=== PATIENT | female | born 1935 | race Two or more races ===

== ENCOUNTER 2017-11-24 15:59 | Inpatient (IN) | payer MEDICARE, MEDICAID ==
--- NOTE | 2017-11-24 16:40 | ED Physician Chart ---
ED Chief Complaint/HPI - Patient Information Date Seen:: 11/24/17 Time Seen:: 16:37 Chief Complaint:: Hypoglycemia History of Present Illness:: 81 yo female was brought by BLS from SNF to ER for evaluation of altered mental status due to hypoglycemia Glucose 35. Patient was given D10 prior to ER arrival. Patient had cough productive of yellow sputum for 1 day. She was found to have UTI at [facility] ER a day ago. Patient has a mechanical heart valve on coumadin 3mg qd. Her INR was 2.93 two days ago. Today, her INR at ER was 4.43 and Hb was 7.8. Allergies:: Allergies Allergy/AdvReac Type Severity Reaction Status Date / Time No Known Allergies Allergy Verified 11/24/17 16:24 Vitals:: Vital Signs - 8 hr 11/24/17 16:17 Temp 96.5 F HR 61 RR 16 BP 120/45 O2 Sat % 96 ED Review of Systems - Review of Systems General/Constitutional: No fever Skin: No rash Head: Light headed Eyes: No pain ENT: No nasal drainage Neck: No neck pain Cardio Vascular: Palpitations, No edema Pulmonary: SOB, Cough, Sputum GI: No nausea, No vomiting Musculoskeletal: No bone or joint pain Neurological: Weakness ED Past Medical History - Past Medical History Past Medical History: HTN, DM, CHF, PUD/GERD, Dementia, Other (GI bleeding, atrial fibrillation, hemorrhoids) Social History: Non Smoker, No Alcohol, No Drug Use Surgical History: CABG, Pacemaker Family Medical History - Family Member Mother History Unknown: Yes ED Physical Exam - Physical Examination General/Constitutional: Awake Head: Atraumatic Eyes: PERRL Skin: No ecchymosis ENMT: Nasal exam nl Neck: Nontender Other Respiratory comments:: Rhonchi Cardio Vascular: No murmur, gallop, rubs, NL S1 S2 Other Cardio Vascular comments:: IRR GI: No tenderness/rebounding/guarding Extremities: No edema Other Neuro/Psych comments:: Oriented to self only ED Labs/Radiology/EKG Results - Radiology Results Results: CXR: cardiomegaly, no focal consolidation - EKG Interpretations EKG Time:: 16:47 Rate & Rhythm: 76 bpm, atrial fibrillation Intervals: Prolonged QT intervals Comments:: Non-specific T wave changes ED Assessment - Assessment General Assessment: Microcytic anemia 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 Is Septic Shock (SBP<90, OR Lactate>4 mmol\L) present?: No - <6hrs of presentation: Vital Signs: Vital Signs - 8 hr 11/24/17 16:17 Temp 96.5 F HR 61 RR 16 BP 120/45 O2 Sat % 96 ED Reassessment (Disposition) - Reassessment Reassessment Condition:: Improved - Patient Disposition Discharge/Transfer:: Acute Care w/in this hosp Admitting Medical Physician:: Eric Vasquez ED Discharge Plan - Patient Disposition Admit/Discharge/Transfer: Acute Care w/in this hosp Condition at Disposition: Stable
[2017-11-24 17:16] LABS: % BASOPHILS 0.5 % (0.0-2.0); % EOSINOPHILS 0.3 % (0.0-5.0); % LYMPHOCYTES 9.9 % (20.0-50.0); % MONOCYTES 6.8 % (2.0-10.0); % NEUTROPHILS 82.5 % (40.0-80.0); HEMATOCRIT 24.8 % (41.0-60); LYMPHOCYTE ABSOLUTE 0.6 Th/cmm (1.5-3.0); MEAN CELL VOLUME 78.9 fl (81-100); MEAN CORPUSCULAR HEMOGLOBIN 24.8 pg (27.0-31.0); MEAN CORPUSCULAR HGB CONC 31.5 pg (28.0-36.0); MONOCYTE ABSOLUTE 0.4 Th/cmm (0.3-1.0); NEUTROPHILE ABSOLUTE 4.9 Th/cmm (1.8-8.0); PLATELET COUNT 356 Th/cmm (150-400); RED BLOOD COUNT 3.14 Mil/cmm (3.80-5.20); RED CELL DISTRIBUTION WIDTH 17.1 % (11.5-20.0); WHITE BLOOD COUNT 5.9 Th/cmm (4.8-10.8)
[2017-11-24 17:20] LABS: HEMOGLOBIN 7.8 gm/dL (12-16)
[2017-11-24 17:28] LABS: PROTHROMBIN TIME (TEST) 49.8 SECONDS (9.5-11.5)
[2017-11-24 17:30] LABS: ALB/GLOB RATIO 0.8 (1.0-1.8); ALBUMIN 2.7 gm/dL (3.7-5.3); ALKALINE PHOSPHATASE 177 U/L (34-104); ANION GAP 11.5 (7.0-16.0); BILIRUBIN,TOTAL 0.3 mg/dL (0.3-1.0); BUN - UREA NITROGEN 24 mg/dL (7-25); CALCIUM SERUM 8.3 mg/dL (8.6-10.3); CARBON DIOXIDE 21.2 mEq/L (21.0-31.0); CHLORIDE 104 mEq/L (98-107); CREATININE - SERUM 1.3 mg/dL (0.6-1.2); GLUCOSE 100 mg/dL (70-105); POTASSIUM SERUM 3.7 mEq/L (3.5-5.1); SGOT 19 U/L (13-39); SGPT/ALT 18 U/L (7-52); SODIUM SERUM 133 mEq/L (136-145); TOTAL PROTEIN,SERUM 6.2 gm/dL (6.0-8.3)
[2017-11-24 17:45] LABS: INR 4.43 (0.5-1.4)
[2017-11-24] MEDS ORDERED: Sodium Chloride 0.9% 1,000 ML IV ONE (17:54)
[2017-11-24] MEDS ORDERED: Albuterol/Ipratropium Neb 3 ML AERS HHN ONE ×2 (18:28→18:51)
[2017-11-24 18:50] LABS: URINE MICROSCOPIC INDICATED? YES; URINE SOURCE RANDOM
[2017-11-24 18:52] LABS: URINE BILIRUBIN NEGATIVE (NEGATIVE); URINE BLOOD LARGE (NEGATIVE); URINE GLUCOSE (UA) NEGATIVE (NEGATIVE); URINE KETONE NEGATIVE (NEGATIVE); URINE LEUKOCYTE ESTERASE LARGE (NEGATIVE); URINE NITRATE NEGATIVE (NEGATIVE); URINE PH 5.5 (4.6 - 8.0); URINE PROTEIN 30 mg/dL (NEGATIVE); URINE UROBILINOGEN 0.2 E.U./dL (0.2 - 1.0)
[2017-11-24 18:56] LABS: URINE CLARITY TURBID (CLEAR); URINE COLOR YELLOW
[2017-11-24 19:00] LABS: URINE BACTERIA FEW /hpf (NONE SEEN); URINE EPITHELIAL CELLS OCCASIONAL /lpf (FEW); URINE WBC >100 /hpf (0-5)
[2017-11-24] MEDS: INSULIN ASPART SLIDING SCALE 100 UNITS/ML UNIT SUBQ SCH (21:50)
[2017-11-24] MEDS: cefTRIAXone 1 GM in Sodium Chloride 0.9% 50 ML IV SCH (22:38)
[2017-11-25 00:41] VITALS: BP 117/80
[2017-11-25 05:57] LABS: % BASOPHILS 0.6 % (0.0-2.0); % EOSINOPHILS 2.2 % (0.0-5.0); % MONOCYTES 6.9 % (2.0-10.0); % NEUTROPHILS 68.3 % (40.0-80.0); EOSINOPHILE ABSOLUTE 0.2 Th/cmm (0.1-0.4); HEMATOCRIT 23.9 % (41.0-60); LYMPHOCYTE ABSOLUTE 1.5 Th/cmm (1.5-3.0); MEAN CELL VOLUME 78.6 fl (81-100); MEAN CORPUSCULAR HEMOGLOBIN 25.2 pg (27.0-31.0); MEAN PLATELET VOLUME 6.8 fl; MONOCYTE ABSOLUTE 0.5 Th/cmm (0.3-1.0); NEUTROPHILE ABSOLUTE 4.7 Th/cmm (1.8-8.0); PLATELET COUNT 355 Th/cmm (150-400); RED BLOOD COUNT 3.05 Mil/cmm (3.80-5.20); RED CELL DISTRIBUTION WIDTH 16.9 % (11.5-20.0); WHITE BLOOD COUNT 6.9 Th/cmm (4.8-10.8)
[2017-11-25 06:21] LABS: ANION GAP 10.2 (7.0-16.0); BUN - UREA NITROGEN 22 mg/dL (7-25); CALCIUM SERUM 8.1 mg/dL (8.6-10.3); CARBON DIOXIDE 20.9 mEq/L (21.0-31.0); CHLORIDE 108 mEq/L (98-107); CREATININE - SERUM 1.1 mg/dL (0.6-1.2); GLUCOSE 116 mg/dL (70-105); POTASSIUM SERUM 4.1 mEq/L (3.5-5.1); SODIUM SERUM 135 mEq/L (136-145)
[2017-11-25 06:26] LABS: HEMOGLOBIN 7.7 gm/dL (12-16)
[2017-11-25] MEDS: INSULIN ASPART SLIDING SCALE 100 UNITS/ML UNIT SUBQ SCH ×4 (06:59→21:59)
[2017-11-25] MEDS ORDERED: Polyvinyl Alcohol Ophth Soln 15 mL Bottle EACH EYE PRN (08:14)
[2017-11-25] MEDS ORDERED: Magnesium Hydroxide (MOM) 30 mL UDC PO PRN (08:14)
[2017-11-25] MEDS ORDERED: LOPERAMIDE HCL 2 MG PO PRN (08:14)
[2017-11-25] MEDS ORDERED: Non-Formulary Item 1 EA (Cranberry Fruit [Cranberry] 450 MG) PO SCH (09:00)
[2017-11-25] MEDS ORDERED: ASCORBIC ACID 500 MG PO SCH (09:00)
[2017-11-25] MEDS ORDERED: INSULIN ASPART, RECOMBINANT 100 UNITS/ML SUBQ SCH ×2 (09:00)
--- NOTE | 2017-11-25 09:10 | Diagnostic Imaging Report ---
Portable chest x-ray HISTORY: Shortness of breath The heart is enlarged. Surgical changes including mitral valve replacement noted. Atherosclerotic calcification seen within the aorta. Cardiac electrode lead wires project over the right atrium and right ventricle. No focal pulmonary processes. IMPRESSION: 1. Cardiomegaly with atherosclerotic vascular changes 2. Surgical changes 3. No focal pulmonary processes
[2017-11-25 09:27] LABS: INR 3.29 (0.5-1.4); PROTHROMBIN TIME (TEST) 36.4 SECONDS (9.5-11.5)
[2017-11-25] MEDS: Ferrous Sulfate 325 MG TAB PO SCH (10:22)
[2017-11-25] MEDS: Multivitamin w/ Minerals Tab PO SCH (10:23)
[2017-11-25] MEDS: Pantoprazole 40 mg EC Tab PO SCH ×2 (10:23→18:30)
[2017-11-25] MEDS: Diltiazem 30 mg Tab PO SCH ×3 (10:24→21:54)
[2017-11-25] MEDS: Guaifenesin DM 10 ML UDC PO PRN (15:13)
[2017-11-25] MEDS: Albuterol/Ipratropium Neb 3 ML AERS HHN SCH ×3 (15:14→23:32)
--- NOTE | 2017-11-25 16:48 | History & Physical ---
ADMIT DATE: REASON FOR ADMISSION: Altered mental status, hypoglycemia with a glucose of 35, status post D10 injection, failed treatment for urinary tract infection with outpatient p.o. antibiotic, Coumadin toxicity, hyponatremia, generalized weakness in this patient with a mechanical heart valve, chronic atrial fibrillation, hyperuricemia, hypertension, anemia with hemoglobin of 7.8, insulin-dependent diabetes mellitus, gastroesophageal reflux disease. PAST MEDICAL HISTORY: As mentioned above. ALLERGIES: None. CURRENT MEDICATION: Includes Keflex 500 mg 4 times a day started in the [facility] Emergency Room 2 days prior to this admission and Bactrim-DS 1 tablet p.o. b.i.d., Diflucan 100 mg q.8 hours gel topically, insulin glargine 50 units subcutaneous at bedtime, Remeron 7.5 mg at bedtime, allopurinol 100 mg once a day, vitamin C 500 mg twice a day, ferrous sulfate 325 mg twice a day, digoxin 125 mcg once a day, Cardizem 30 mg 3 times a day, Colace 100 mg once a day, folic acid 1 mg once a day, Lasix 20 mg once a day, insulin aspart 12 units in the morning and 16 units at night. Loperamide 2 mg q.6 hours p.r.n. for diarrhea, magnesium hydroxide (milk of magnesia ) 30 ml p.o. at bedtime p.r.n., multivitamin once a day, artificial tears 1 drop q.6 hours p.r.n. both eyes, Aldactone 25 mg once a day, Coumadin 3 mg once a day. SOCIAL HISTORY: Noncontributory. REVIEW OF SYSTEMS: See the history of presenting illness. The patient's main complaint is "I don't feel good, doctor I am unable to fall asleep." The patient is complaining of pain in the suprapubic area. No fever, no chills, no leg swelling or joint swelling. No rashes. PHYSICAL EXAMINATION: VITAL SIGNS: On examination, height 1.52 meters, weight 56.6 kg, temperature 96.5, afebrile since admission, temperature maximum 97, pulse 78, blood pressure 124/60, heart rate 78 and respiratory rate 18, blood pressure 124/60, oxygen saturation 100% on room air. HEENT: Unremarkable. NECK: Supple. No JVD, bruit, or lymphadenopathy. CHEST: Clear. CARDIOVASCULAR: S1, S2 normal limit. 2/6 systolic ejection murmur from the mechanical valve. ABDOMEN: Soft, no distention noted in the suprapubic area. Bowel sound is active. No CVA tenderness. EXTREMITIES: Dry skin. Dorsalis pedis palpable. No leg edema noted. Onychomycosis of the big toenails present. CENTRAL NERVOUS SYSTEM: The patient is awake, cooperative, able to follow all commands. LABORATORY TESTS: Significant for WBC 5.9, repeat one is 6.9; hemoglobin 7.8, repeat is 7.7; MCV 78; platelet count of 355,000; neutrophil 68. Protime 49. INR 4.4. Sodium 135, potassium 4.1, chloride 108, bicarbonate 21, BUN 22, creatinine 1.1 and glucose of 116, calcium 8.1. Liver panel otherwise unremarkable except albumin 2.7, BNP 255. Urinalysis pH 5.5, specific gravity 1.020, protein 1+, nitrite negative, leukocyte esterase large, wbcs more than 100. Stool occult blood negative. ASSESSMENT AND PLAN: 1. Altered mental status secondary to hypoglycemia. We will hold the patient's long-acting insulin and only do Accu-Chek and sliding scale and go from there. 2. Urinary tract infection, complicated. The patient is waiting for outpatient cystoscopy on 11/28/2017. The patient failed outpatient Keflex and Bactrim given from the [facility] Emergency Room 2 days prior, so we will start the patient on IV Rocephin and wait for urine culture. Also, give IV fluid cautiously as patient had congestive heart failure. 3. Coumadin toxicity. We will check a protime again this morning and hold Coumadin if INR is more than 3, most likely increasing the Coumadin level from the recent antibiotic use. 4. Hyponatremia, status post 1 liter of IV fluid in the Emergency Room and sodium is 135, so we will discontinue IV fluid as patient with congestive heart failure. 5. Congestive heart failure. Continue Aldactone and Lasix. Monitor electrolytes. 6. Gastroesophageal reflux disease. Continue Protonix. 7. Degenerative joint disease. We will hold Diflucan and Voltaren gel at present time and give Tylenol p.r.n. for pain. 8. Chronic insomnia, currently on Remeron 7.5 p.o. at bedtime. We will continue with that. 9. Hyperuricemia currently on allopurinol 100. We will continue with that. 10. Anemia. Hemoglobin remained stable and the stool occult negative. We will continue with iron replacement and a type and crossmatch at the present time and if hemoglobin goes below 7, we will transfuse. 11. Chronic constipation. We will continue with milk of magnesia on a p.r.n. basis. 12. Cardiac arrhythmia. We will obtain EKG and a digoxin level and continue with digoxin and Cardizem to control the heart rate. 13. Advanced directive of no CPR status. JOB# [id number] ISIDRO
[2017-11-25] MEDS: cefTRIAXone 1 GM in Sodium Chloride 0.9% 50 ML IV SCH (21:55)
[2017-11-26] MEDS: Albuterol/Ipratropium Neb 3 ML AERS HHN SCH ×6 (03:32→22:46)
[2017-11-26] MEDS: INSULIN ASPART SLIDING SCALE 100 UNITS/ML UNIT SUBQ SCH ×4 (06:51→20:38)
[2017-11-26 07:13] LABS: % BASOPHILS 1.3 % (0.0-2.0); % EOSINOPHILS 0.8 % (0.0-5.0); % LYMPHOCYTES 25.1 % (20.0-50.0); % MONOCYTES 6.1 % (2.0-10.0); % NEUTROPHILS 66.7 % (40.0-80.0); BASOPHILE ABSOLUTE 0.1 Th/cumm (0-0.2); HEMATOCRIT 24.9 % (41.0-60); HEMOGLOBIN 8.2 gm/dL (12-16); LYMPHOCYTE ABSOLUTE 1.4 Th/cmm (1.5-3.0); MEAN CELL VOLUME 77.3 fl (81-100); MEAN CORPUSCULAR HEMOGLOBIN 25.4 pg (27.0-31.0); MEAN CORPUSCULAR HGB CONC 32.8 pg (28.0-36.0); MEAN PLATELET VOLUME 7.5 fl; MONOCYTE ABSOLUTE 0.3 Th/cmm (0.3-1.0); NEUTROPHILE ABSOLUTE 3.8 Th/cmm (1.8-8.0); PLATELET COUNT 352 Th/cmm (150-400); RED BLOOD COUNT 3.21 Mil/cmm (3.80-5.20); RED CELL DISTRIBUTION WIDTH 17.2 % (11.5-20.0); WHITE BLOOD COUNT 5.6 Th/cmm (4.8-10.8)
[2017-11-26 07:31] LABS: ALB/GLOB RATIO 0.8 (1.0-1.8); ALBUMIN 2.7 gm/dL (3.7-5.3); ALKALINE PHOSPHATASE 160 U/L (34-104); ANION GAP 11.6 (7.0-16.0); BILIRUBIN,TOTAL 0.4 mg/dL (0.3-1.0); BUN - UREA NITROGEN 16 mg/dL (7-25); CALCIUM SERUM 8.5 mg/dL (8.6-10.3); CARBON DIOXIDE 21.5 mEq/L (21.0-31.0); CHLORIDE 107 mEq/L (98-107); CHOLESTEROL 98 mg/dL (<200); CREATININE - SERUM 1.1 mg/dL (0.6-1.2); GLUCOSE 128 mg/dL (70-105); HDL -HIGH DENSITY LIPOPROTEIN 18 mg/dL (23-92); POTASSIUM SERUM 4.1 mEq/L (3.5-5.1); SGOT 16 U/L (13-39); SGPT/ALT 15 U/L (7-52); SODIUM SERUM 136 mEq/L (136-145); TOTAL PROTEIN,SERUM 6.2 gm/dL (6.0-8.3); TRIGLYCERIDES 136 mg/dL (<150)
[2017-11-26 07:32] LABS: INR 2.6 (0.5-1.4); PROTHROMBIN TIME (TEST) 28.4 SECONDS (9.5-11.5)
--- NOTE | 2017-11-26 09:00 | Diagnostic Imaging Report ---
Portable chest x-ray HISTORY: Shortness of breath Compared with prior exam of November 24, 2017, cardiomegaly again noted. There does appear to be degree of pulmonary vascular redistribution consistent with an element of cardiac decompensation. No tj pulmonary edema. Findings consistent with a small right pleural effusion are noted. IMPRESSION: 1. Persistent cardiomegaly along with evidence of a small right pleural effusion and changes consistent with a mild degree of congestive heart failure without tj pulmonary edema.
[2017-11-26] MEDS: Diltiazem 30 mg Tab PO SCH ×3 (09:26→20:39)
[2017-11-26] MEDS: Ferrous Sulfate 325 MG TAB PO SCH (09:27)
[2017-11-26] MEDS: Pantoprazole 40 mg EC Tab PO SCH ×2 (09:27→17:57)
[2017-11-26] MEDS: Multivitamin w/ Minerals Tab PO SCH (09:27)
[2017-11-26] MEDS: cefTRIAXone 1 GM in Sodium Chloride 0.9% 50 ML IV SCH (20:38)
[2017-11-26] MEDS: Guaifenesin DM 10 ML UDC PO PRN (20:41)
[2017-11-27] MEDS: Albuterol/Ipratropium Neb 3 ML AERS HHN SCH ×2 (02:36→07:04)
[2017-11-27 06:14] LABS: ALB/GLOB RATIO 0.8 (1.0-1.8); ALBUMIN 2.6 gm/dL (3.7-5.3); ALKALINE PHOSPHATASE 142 U/L (34-104); ANION GAP 11.8 (7.0-16.0); BILIRUBIN,TOTAL 0.3 mg/dL (0.3-1.0); BUN - UREA NITROGEN 16 mg/dL (7-25); CALCIUM SERUM 8.3 mg/dL (8.6-10.3); CARBON DIOXIDE 21.9 mEq/L (21.0-31.0); CHLORIDE 107 mEq/L (98-107); CREATININE - SERUM 1.3 mg/dL (0.6-1.2); GLUCOSE 166 mg/dL (70-105); POTASSIUM SERUM 3.7 mEq/L (3.5-5.1); SGOT 16 U/L (13-39); SGPT/ALT 12 U/L (7-52); SODIUM SERUM 137 mEq/L (136-145)
[2017-11-27 06:50] LABS: % BASOPHILS 3.6 % (0.0-2.0); % EOSINOPHILS 1.8 % (0.0-5.0); % LYMPHOCYTES 29.5 % (20.0-50.0); % MONOCYTES 8.4 % (2.0-10.0); % NEUTROPHILS 56.7 % (40.0-80.0); BASOPHILE ABSOLUTE 0.2 Th/cumm (0-0.2); EOSINOPHILE ABSOLUTE 0.1 Th/cmm (0.1-0.4); HEMATOCRIT 23.7 % (41.0-60); LYMPHOCYTE ABSOLUTE 1.6 Th/cmm (1.5-3.0); MEAN CELL VOLUME 78.3 fl (81-100); MEAN CORPUSCULAR HEMOGLOBIN 25.3 pg (27.0-31.0); MEAN CORPUSCULAR HGB CONC 32.3 pg (28.0-36.0); MEAN PLATELET VOLUME 7.6 fl; MONOCYTE ABSOLUTE 0.5 Th/cmm (0.3-1.0); NEUTROPHILE ABSOLUTE 3.1 Th/cmm (1.8-8.0); PLATELET COUNT 327 Th/cmm (150-400); RED BLOOD COUNT 3.03 Mil/cmm (3.80-5.20); RED CELL DISTRIBUTION WIDTH 17.5 % (11.5-20.0)
[2017-11-27 06:54] LABS: WHITE BLOOD COUNT 5.5 Th/cmm (4.8-10.8)
[2017-11-27] MEDS: INSULIN ASPART SLIDING SCALE 100 UNITS/ML UNIT SUBQ SCH ×4 (08:55→22:25)
[2017-11-27] MEDS: Diltiazem 30 mg Tab PO SCH ×3 (09:30→21:10)
[2017-11-27] MEDS: Ferrous Sulfate 325 MG TAB PO SCH (09:30)
[2017-11-27] MEDS: Multivitamin w/ Minerals Tab PO SCH (09:30)
[2017-11-27] MEDS: Pantoprazole 40 mg EC Tab PO SCH ×2 (09:30→17:14)
[2017-11-27] MEDS ORDERED: Albuterol/Ipratropium Neb 3 ML AERS HHN PRN (10:19)
[2017-11-27] MEDS ORDERED: Magnesium Citrate 1.75 GM/300 mL Bottle PO ONE (11:07)
[2017-11-27 12:58] LABS: INR 2.47 (0.5-1.4); PROTHROMBIN TIME (TEST) 26.9 SECONDS (9.5-11.5)
[2017-11-27 16:27] LABS: ABSOLUTE RETICULOCYTE 48.2 Th/cmm; CORRECTED RETICULOCYTE COUNT 0.8 % (0.5-1.5); HEMATOCRIT 23.4 % (37.0-47.0); RBC RETICULOCYTE COUNT 3.01 Mil/cmm; RETICULOCYTES % COUNTED 1.6 % (0.5-1.5)
[2017-11-27 20:24] LABS: % BASOPHILS 0.6 % (0.0-2.0); % EOSINOPHILS 3.6 % (0.0-5.0); % LYMPHOCYTES 23.6 % (20.0-50.0); % MONOCYTES 7.9 % (2.0-10.0); % NEUTROPHILS 64.3 % (40.0-80.0); EOSINOPHILE ABSOLUTE 0.2 Th/cmm (0.1-0.4); HEMATOCRIT 27.5 % (41.0-60); HEMOGLOBIN 9.1 gm/dL (12-16); LYMPHOCYTE ABSOLUTE 1.6 Th/cmm (1.5-3.0); MEAN CELL VOLUME 78.2 fl (81-100); MEAN CORPUSCULAR HEMOGLOBIN 25.7 pg (27.0-31.0); MEAN CORPUSCULAR HGB CONC 32.9 pg (28.0-36.0); MEAN PLATELET VOLUME 6.3 fl; MONOCYTE ABSOLUTE 0.5 Th/cmm (0.3-1.0); NEUTROPHILE ABSOLUTE 4.3 Th/cmm (1.8-8.0); PLATELET COUNT 366 Th/cmm (150-400); RED BLOOD COUNT 3.52 Mil/cmm (3.80-5.20); RED CELL DISTRIBUTION WIDTH 16.2 % (11.5-20.0); WHITE BLOOD COUNT 6.6 Th/cmm (4.8-10.8)
[2017-11-27] MEDS: cefTRIAXone 1 GM in Sodium Chloride 0.9% 50 ML IV SCH (21:00)
[2017-11-27] MEDS: Guaifenesin DM 10 ML UDC PO PRN (21:32)
[2017-11-28 05:23] LABS: % BASOPHILS 0.9 % (0.0-2.0); % EOSINOPHILS 3.6 % (0.0-5.0); % LYMPHOCYTES 24.9 % (20.0-50.0); % MONOCYTES 7.2 % (2.0-10.0); % NEUTROPHILS 63.4 % (40.0-80.0); BASOPHILE ABSOLUTE 0.1 Th/cumm (0-0.2); EOSINOPHILE ABSOLUTE 0.3 Th/cmm (0.1-0.4); HEMATOCRIT 30.2 % (41.0-60); LYMPHOCYTE ABSOLUTE 1.8 Th/cmm (1.5-3.0); MEAN CELL VOLUME 80.3 fl (81-100); MEAN CORPUSCULAR HEMOGLOBIN 26.7 pg (27.0-31.0); MEAN CORPUSCULAR HGB CONC 33.3 pg (28.0-36.0); MEAN PLATELET VOLUME 6.8 fl; MONOCYTE ABSOLUTE 0.5 Th/cmm (0.3-1.0); NEUTROPHILE ABSOLUTE 4.7 Th/cmm (1.8-8.0); PLATELET COUNT 331 Th/cmm (150-400); RED BLOOD COUNT 3.76 Mil/cmm (3.80-5.20); RED CELL DISTRIBUTION WIDTH 17.1 % (11.5-20.0); WHITE BLOOD COUNT 7.4 Th/cmm (4.8-10.8)
[2017-11-28 05:37] LABS: INR 2.7 (0.5-1.4); PROTHROMBIN TIME (TEST) 29.6 SECONDS (9.5-11.5)
[2017-11-28 05:41] LABS: ALB/GLOB RATIO 0.8 (1.0-1.8); ALBUMIN 2.8 gm/dL (3.7-5.3); ALKALINE PHOSPHATASE 143 U/L (34-104); ANION GAP 10.8 (7.0-16.0); BILIRUBIN,TOTAL 1.3 mg/dL (0.3-1.0); BUN - UREA NITROGEN 14 mg/dL (7-25); CALCIUM SERUM 8.3 mg/dL (8.6-10.3); CARBON DIOXIDE 23.2 mEq/L (21.0-31.0); CHLORIDE 106 mEq/L (98-107); GLUCOSE 110 mg/dL (70-105); MAGNESIUM 1.7 mg/dL (1.9-2.7); SGOT 19 U/L (13-39); SGPT/ALT 15 U/L (7-52); SODIUM SERUM 136 mEq/L (136-145); TOTAL PROTEIN,SERUM 6.2 gm/dL (6.0-8.3)
--- NOTE | 2017-11-28 07:10 | Consultation ---
DATE OF CONSULTATION: 11/27/2017 REASON FOR CONSULTATION: Anemia. HISTORY OF PRESENT ILLNESS: This consult was obtained through the courtesy of Dr. Burns for this 81-year-old with dementia, congestive heart failure, electrolyte abnormality, Coumadin toxicity, admitted to the hospital, alter of consciousness and hypoglycemia, found to have elevation of PT, then she has anemia, which dropped even further, so GI consult was called in for further evaluation. The patient is confused, unable to provide any history. PAST MEDICAL HISTORY: Congestive heart failure, diabetes, gastroesophageal reflux disease, degenerative joint disease, dementia, electrolyte imbalance and on anticoagulation. PAST SURGICAL HISTORY: Not known. SOCIAL HISTORY: Nonsmoker, alcoholic, IV drug abuser, but old history is not known. FAMILY HISTORY: Noncontributory. ALLERGIES: No known drug allergies. MEDICATIONS: Keflex, Bactrim, Diflucan, insulin, Remeron, allopurinol, vitamin C, iron, digoxin, Cardizem, Lasix, folic acid, Colace, loperamide, milk of magnesia, multivitamin, Aldactone, Coumadin. REVIEW OF SYSTEMS: Unobtainable. PHYSICAL EXAMINATION: GENERAL: The patient is awake, oriented to self, in no acute distress. VITAL SIGNS: Blood pressure 120/46, heart rate 105, respiratory rate 18, temperature is 98.5. HEAD AND NECK: Pupils reactive to light and accommodation. Extraocular muscles could not be tested. Oral cavity, no lesion. NECK: Supple, no jugular venous distention, no carotid lymph node. CHEST: Good respiratory movements. LUNGS: Clear to auscultation. CARDIOVASCULAR: Regular rate and rhythm. No murmur or gallop. ABDOMEN: Soft, positive bowel sounds, not tender. EXTREMITIES: Lower extremities, no edema. CENTRAL NERVOUS SYSTEM: Grossly nonfocal. LABORATORY DATA: PT was 49.8 seconds, now is 28.4 seconds, INR 2.6, hemoglobin down to 7.7, MCV is low at 78.3. RDW was normal. Albumin is 2.6, creatinine 1.3. IMPRESSION: An 81-year-old with multiple medical problems, now with anemia, rule out peptic ulcer disease versus upper gastrointestinal malignancy versus colon cancer. RECOMMENDATIONS: 1. Monitor labs. 2. Check serum iron, TIBC, ferritin, B12, folic acid. 3. Check serum haptoglobin and check stool for occult blood. 4. Endoscopy and colonoscopy if not done before and whenever PT is okay, but I am not sure that the patient will be cooperative with the past, but we will check with the family first and then further recommendations to follow. Other medical problems such as congestive heart failure, diabetes, dementia, etc. as per Dr. Burns. Thank you Dr. Burns for allowing me to participate in the care of the patient. If you have any further questions, please let me know. JOB# [id number]
[2017-11-28] MEDS: INSULIN ASPART SLIDING SCALE 100 UNITS/ML UNIT SUBQ SCH ×4 (07:28→21:10)
[2017-11-28] MEDS: Ferrous Sulfate 325 MG TAB PO SCH (08:51)
[2017-11-28] MEDS: Pantoprazole 40 mg EC Tab PO SCH ×2 (08:51→17:16)
[2017-11-28] MEDS: Diltiazem 30 mg Tab PO SCH ×3 (08:53→20:12)
[2017-11-28] MEDS: Multivitamin w/ Minerals Tab PO SCH (08:54)
[2017-11-28 09:06] LABS: HEMOGLOBIN 7.7 gm/dL (12-16)
--- NOTE | 2017-11-28 09:28 | Internal Medicine Prog Note ---
Internal Medicine Objective - Results Result Diagrams: 11/28/17 05:10 11/28/17 05:10 Recent Labs: Laboratory Last Values WBC 7.4 Th/cmm (4.8-10.8) 11/28/17 05:10 RBC 3.76 Mil/cmm (3.80-5.20) L 11/28/17 05:10 Hgb 10.0 gm/dL (12-16) L 11/28/17 05:10 Hct 30.2 % (41.0-60) L 11/28/17 05:10 MCV 80.3 fl (81-100) L 11/28/17 05:10 MCH 26.7 pg (27.0-31.0) L 11/28/17 05:10 MCHC Differential 33.3 pg (28.0-36.0) 11/28/17 05:10 RDW 17.1 % (11.5-20.0) 11/28/17 05:10 Plt Count 331 Th/cmm (150-400) 11/28/17 05:10 MPV 6.8 fl 11/28/17 05:10 Neutrophils % 63.4 % (40.0-80.0) 11/28/17 05:10 Lymphocytes % 24.9 % (20.0-50.0) 11/28/17 05:10 Monocytes % 7.2 % (2.0-10.0) 11/28/17 05:10 Eosinophils % 3.6 % (0.0-5.0) 11/28/17 05:10 Basophils % 0.9 % (0.0-2.0) 11/28/17 05:10 Total Retics Counted 1.6 % (0.5-1.5) H 11/27/17 05:40 Absolute Retic 48.2 Th/cmm 11/27/17 05:40 Corrected Retic Count 0.8 % (0.5-1.5) 11/27/17 05:40 PT 29.6 SECONDS (9.5-11.5) H 11/28/17 05:10 INR 2.70 (0.5-1.4) H 11/28/17 05:10 PTT (Actin FS) 54.0 SECONDS (26.0-38.0) H 11/24/17 17:05 Sodium 136 mEq/L (136-145) 11/28/17 05:10 Potassium 4.0 mEq/L (3.5-5.1) 11/28/17 05:10 Chloride 106 mEq/L (98-107) 11/28/17 05:10 Carbon Dioxide 23.2 mEq/L (21.0-31.0) 11/28/17 05:10 Anion Gap 10.8 (7.0-16.0) 11/28/17 05:10 BUN 14 mg/dL (7-25) 11/28/17 05:10 Creatinine 1.0 mg/dL (0.6-1.2) 11/28/17 05:10 Est GFR ( Amer) TNP 11/28/17 05:10 Est GFR (Non-Af Amer) TNP 11/28/17 05:10 BUN/Creatinine Ratio 14.0 11/28/17 05:10 Glucose 110 mg/dL (70-105) H 11/28/17 05:10 POC Glucose 119 MG/DL (70 - 105) H 11/28/17 06:00 Uric Acid 5.3 mg/dL (2.3-6.6) 11/26/17 05:48 Calcium 8.3 mg/dL (8.6-10.3) L 11/28/17 05:10 Magnesium 1.7 mg/dL (1.9-2.7) L 11/28/17 05:10 Total Bilirubin 1.3 mg/dL (0.3-1.0) H 11/28/17 05:10 AST 19 U/L (13-39) 11/28/17 05:10 ALT 15 U/L (7-52) 11/28/17 05:10 Alkaline Phosphatase 143 U/L (34-104) H 11/28/17 05:10 Troponin I 0.01 ng/mL (0.01-0.05) 11/24/17 17:05 B-Natriuretic Peptide 248.0 pg/mL (5.0-100.0) H 11/26/17 05:48 Total Protein 6.2 gm/dL (6.0-8.3) 11/28/17 05:10 Albumin 2.8 gm/dL (3.7-5.3) L 11/28/17 05:10 Globulin 3.4 gm/dL 11/28/17 05:10 Albumin/Globulin Ratio 0.8 (1.0-1.8) L 11/28/17 05:10 Triglycerides 136 mg/dL (<150) 11/26/17 05:48 Cholesterol 98 mg/dL (<200) 11/26/17 05:48 LDL Cholesterol Direct 58 mg/dL (75-193) L 11/26/17 05:48 HDL Cholesterol 18 mg/dL (23-92) L 11/26/17 05:48 TSH 2.99 uIU/ml (0.34-5.60) 11/26/17 05:48 Urine Source RANDOM 11/24/17 18:19 Urine Color YELLOW 11/24/17 18:19 Urine Clarity TURBID (CLEAR) H 11/24/17 18:19 Urine pH 5.5 (4.6 - 8.0) 11/24/17 18:19 Ur Specific [place] 1.020 (1.005-1.030) 11/24/17 18:19 Urine Protein 30 mg/dL (NEGATIVE) H 11/24/17 18:19 Urine Glucose (UA) NEGATIVE mg/dL (NEGATIVE) 11/24/17 18:19 Urine Ketones NEGATIVE mg/dL (NEGATIVE) 11/24/17 18:19 Urine Blood LARGE (NEGATIVE) H 11/24/17 18:19 Urine Nitrate NEGATIVE (NEGATIVE) 11/24/17 18: Urine Bilirubin NEGATIVE (NEGATIVE) 11/24/17 18:19 Urine Urobilinogen 0.2 E.U./dL (0.2 - 1.0) 11/24/17 18:19 Ur Leukocyte Esterase LARGE (NEGATIVE) H 11/24/17 18:19 Urine RBC 5-10 /hpf (0-5) H 11/24/17 18:19 Urine WBC >100 /hpf (0-5) H 11/24/17 18:19 Ur Epithelial Cells OCCASIONAL /lpf (FEW) 11/24/17 18:19 Urine Bacteria FEW /hpf (NONE SEEN) 11/24/17 18:19 Stool Occult Blood NEGATIVE (NEGATIVE) 11/24/17 18:45 Digoxin 1.0 ng/ml (0.8-2.0) 11/25/17 08:47 Blood Type A POSITIVE 11/25/17 08:47 Antibody Screen NEGATIVE 11/25/17 08:47 Crossmatch See Detail 11/25/17 08:47 - Physical Exam Vitals and I&O: Vital Signs Temp 98.4 F 11/28/17 04:00 Pulse 97 11/28/17 08:53 Resp 18 11/28/17 04:00 BP 122/53 11/28/17 08:53 Pulse Ox 99 11/28/17 04:00 Intake & Output 11/27/17 11/28/17 11/28/17 18:59 06:59 18:59 Intake Total 800 100 Balance 800 100 Weight (lbs) 53.977 kg 54.068 kg Intake: Oral 800 100 Other: # Voids 3 4 # Bowel Movements 0 0 Weight Source Bedscale Bedscale Active Medications: Current Medications Acetaminophen (Tylenol) 650 mg PO Q4H PRN PRN Reason: Pain (Mild) Stop: 01/23/18 18:57 Last Admin: 11/24/17 22:38 Dose: 650 mg Acetaminophen (Tylenol) 650 mg PO Q6HR PRN PRN Reason: Pain (Mild) Stop: 01/24/18 08:13 Albuterol/Ipratropium (Duoneb Neb) 3 ml HHN Q2H PRN PRN Reason: Wheezing Stop: 01/26/18 10:18 Allopurinol (Zyloprim) 100 mg PO DAILY [facility] Stop: 01/24/18 08:59 Last Admin: 11/28/17 08:53 Dose: 100 mg Artificial Tears (Artificial Tears Ophth Soln) 1 drop EACH EYE Q6HR PRN PRN Reason: Dry Eye Stop: 01/24/18 08:13 Ascorbic Acid (Vitamin C) 500 mg PO DAILY [facility] Stop: 01/24/18 08:59 Last Admin: 11/28/17 08:52 Dose: 500 mg Digoxin (Lanoxin) 0.125 mg PO DAILY [facility] Stop: 01/24/18 08:59 Last Admin: 11/28/17 08:52 Dose: 0.125 mg Diltiazem HCl (Cardizem) 30 mg PO TID [facility] Stop: 01/24/18 08:59 Last Admin: 11/28/17 08:53 Dose: 30 mg Docusate Sodium (Colace) 100 mg PO DAILY [facility] Stop: 01/24/18 08:59 Last Admin: 11/28/17 08:52 Dose: 100 mg Ferrous Sulfate (Iron) 325 mg PO DAILY [facility] Stop: 01/24/18 08:59 Last Admin: 11/28/17 08:51 Dose: 325 mg Folic Acid (Folate) 1 mg PO DAILY [facility] Stop: 01/24/18 08:59 Last Admin: 11/28/17 08:51 Dose: 1 mg Furosemide (Lasix) 20 mg PO DAILY [facility] Stop: 01/24/18 08:59 Last Admin: 11/28/17 08:52 Dose: 20 mg Guaifenesin/Dextromethorphan (Robitussin Dm) 10 ml PO Q6HR PRN PRN Reason: Cough Stop: 01/24/18 14:26 Last Admin: 11/27/17 21:32 Dose: 10 ml Ceftriaxone Sodium 1 gm/ (Sodium Chloride) 50 mls @ 100 mls/hr IV Q24HR [facility] Stop: 01/23/18 20:59 Last Admin: 11/27/17 21:00 Dose: 100 mls/hr Insulin Aspart (Novolog Insulin Sliding Scale) 0 units SUBQ [facility]; Protocol Stop: 01/23/18 20:59 Last Admin: 11/28/17 07:28 Dose: Not Given Loperamide HCl (Imodium) 2 mg PO Q6HR PRN PRN Reason: Diarrhea Stop: 01/24/18 08:38 Magnesium Hydroxide (Milk Of Magnesia) 30 ml PO HS PRN PRN Reason: Constipation Stop: 01/24/18 08:13 Mirtazapine (Remeron) 7.5 mg PO HS [facility]; Protocol Stop: 01/24/18 20:59 Last Admin: 11/27/17 21:12 Dose: 7.5 mg Pantoprazole Sodium (Protonix) 40 mg PO BID [facility] Stop: 01/24/18 08:59 Last Admin: 11/28/17 08:51 Dose: 40 mg Spironolactone (Aldactone) 25 mg PO DAILY [facility] Stop: 01/24/18 08:59 Last Admin: 11/28/17 08:53 Dose: 25 mg Warfarin Sodium (Coumadin) 3 mg PO 1300 [facility]; Protocol Stop: 01/25/18 12:59 Last Admin: 11/27/17 15:00 Dose: 3 mg Warfarin Sodium (Coumadin Per Pharmacy) 1 ea [facility] PRN PRN; Protocol PRN Reason: RX MONITORING Stop: 01/26/18 10:01 Nutritional Asmnt/Malnutr-PDOC - Dietary Evaluation Malnutrition Findings (Please click <Entered> for more info): Nutritional Asmnt/Malnutrition Start: 11/25/17 09: 55 Text: Status: Complete Freq: Protocol: Document 11/25/17 09:55 [facility] (Rec: 11/25/17 10:03 [facility]UC [id number]) Nutritional Asmnt/Malnutrition Patient General Information Nutritional Screening Moderate Risk Consult Diagnosis Anemia, UTI Pertinent Medical Hx/Surgical Hx HTN, DM, CHF, PUD/GERD, Dementia, hx Gi bleed, A fib, hemorrhoids; s/p CABG, pacemaker Subjective Information Consult received for poor appetite. SNF patient with AMS d/t hypoglycemia. Patient is confused and unable to comprehend per EMR. Patient seen in room with daughter. Per daughter, patient requires feed assist but able to finish meals. Food preferences obtained and will honor to encourage adequate PO intake. Current Diet Order/ Nutrition Support CCHO Patient / S.O Can't verbalize diet edu Pertinent Medications vit C, colace, FeSO4, folic acid, lasix, novolog, MOM, imodium, protonix, remeron Pertinent Labs 11/25: Gluc 116, POC gluc 93- 149, Ca++ 8.1, Na 135 Nutritional Hx/Data Height 1.52 m Height (Calculated Centimeters) 152.4 Current Weight (lbs) 56.699 kg Weight (Calculated Kilograms) 56.7 Weight (Calculated Grams) 35941.0 [place] Body Weight 100 % [place] Body Weight 125 Body Mass Index (BMI) 24.4 Weight Status Approriate GI Symptoms GI Symptoms None Last BM no BM since admission Difficult in: None Food Allergies No Skin Integrity/Comment: ladarius roman 19 Current %PO Good (75-100%) Estimated Nutritional Goals BEE in Kcals: Using Current wt Calories/Kcals/Kg 25-27 Kcals Calculated 6330-8640 Protein: Using Current wt Protein g/k.8-1 Protein Calculated 45-56 Fluid: ml 8132-9952 (1ml/Kcal) Nutritional Problem 1. Problem Problem Self-feeding difficulty Etiology dementia Signs/Symptoms: need for feed assist Intervention/Recommendation Comments 1. Recommend continuing current diet order. 2. Recommend feed assist with all meals. Encourage adequate PO intake. Expected Outcomes/Goals Expected Outcomes/Goals Goal: PO intake to meet at least 75% of nutritional needs . Monitor PO intake, wt, labs and skin integrity F/U as moderate risk in 3-5 days, 11/28-11/30
[2017-11-28 14:15] LABS: FOLIC ACID >20.0 ng/mL (>3.0)
[2017-11-28] MEDS: cefTRIAXone 1 GM in Sodium Chloride 0.9% 50 ML IV SCH (20:12)
--- NOTE | 2017-11-29 04:35 | Progress Notes ---
DATE: PATIENT'S IDENTIFYING DATA: An 81-year-old female patient seen and examined. The patient had a blood transfusion done. GI input is currently pending. The patient's post transfusion hemoglobin is 10.0. The patient is currently on Coumadin, INR is 2.70 which is therapeutic range and blood sugars are under acceptable range as well. The patient's appetite is poor. The patient does not provide a meaningful history. PHYSICAL EXAMINATION: VITAL SIGNS: Temperature is 98, pulse is 97, respiratory rate is 18, and blood pressure is 122/53. HEENT: No facial asymmetry. Upper and lower dentures noted. NECK: Supple. No JVD. HEART: Irregular with grade 3/6 systolic murmur noted. CHEST AND LUNGS: Equal in expansion. No expiratory wheezing. ABDOMEN: Soft, no guarding or rigidity. Bowel sounds are present. No palpable mass. EXTREMITIES: No edema. CLINICAL IMPRESSION: 1. Altered mental status secondary to hypoglycemia, improved. 2. Complicated UTI. 3. CHF. 4. GERD. 5. Anemia status post blood transfusion. 6. Alzheimer dementia. 7. DJD. 8. Chronic constipation. 9. Cardiac arrhythmia. 10. Status post aortic valve replacement. PLAN: 1. Anticoagulation continue. 2. GI input. 3. Antibiotic. 4. PT, OT. 5. General nursing care. 6. Follow lab. 7. Follow consult recommendation. 8. Care plan reviewed and discussed with staff. JOB# [id number]
[2017-11-29 05:12] LABS: FERRITIN 159 ng/mL (15-150); HAPTOGLOBIN 130 mg/dL (34-200); IRON LC 15 ug/dL (27-139); TIBC (LC) 204 ug/dL (250-450); UIBC 189 ug/dL (118-369)
[2017-11-29] MEDS: INSULIN ASPART SLIDING SCALE 100 UNITS/ML UNIT SUBQ SCH ×2 (06:33→12:41)
[2017-11-29 07:13] LABS: INR 2.73 (0.5-1.4)
[2017-11-29] MEDS: Diltiazem 30 mg Tab PO SCH (09:06)
[2017-11-29] MEDS: Multivitamin w/ Minerals Tab PO SCH (09:06)
[2017-11-29] MEDS: Pantoprazole 40 mg EC Tab PO SCH (09:06)
[2017-11-29] MEDS: Ferrous Sulfate 325 MG TAB PO SCH (09:08)
--- NOTE | 2017-11-29 18:00 | Discharge Summary ---
DATE OF DISCHARGE: 11/29/2017 IDENTIFICATION: An 81-year-old female. PRINCIPAL DIAGNOSES: 1. Hypoglycemia, resolved. 2. Complicated urinary tract infection. 3. Acute on chronic normocytic normochromic anemia, status post blood transfusion. Family refused GI workup. 4. Coumadin therapy. 5. Alzheimer dementia. 6. Complicated urinary tract infection. 7. Congestive heart failure. 8. Gastroesophageal esophageal reflux disease. 9. Degenerative joint disease. 10. Chronic constipation. 11. Cardiac arrhythmias. 12. Debility. 13. Gout. BRIEF STATEMENT FOR THE REASON FOR ADMISSION: An 81-year-old female resident of [facility] sent to Emergency Room after the patient was noted to have hypoglycemia and altered mental status. Please refer to Dr. Eric Vasquez's H and P for further information. HOSPITAL COURSE: The patient was admitted by him to telemetry unit. The patient was given D5W. Empirical IV antibiotic was started as well. The patient was placed on appropriate home medication as well. The patient did have followup lab, which revealed hemoglobin of 7.7. The patient was given blood transfusion based on the patient's cardiac history. GI consult was requested as well since the patient has previous history of GI bleeding. The patient's family refused GI workup since there was no GI workup was planned. Decision was made that the patient should be discharged. The patient's family, daughter is agreeable with discharging this patient to [facility]. The patient will be followed by myself. At the time of discharge, all of her meds were reconciled. JOB# [id number]
--- NOTE | 2017-11-30 00:29 | Progress Notes ---
DATE: SUBJECTIVE: The patient seen and examined. The patient is lying in the bed. The patient is refusing to eat food at times. The patient's daughter does not want a colonoscopy or endoscopy. There is no apparent active bleeding. We discussed with engineer fishing vessel. Since no further workup has been planned, recommended that the patient can be discharged. The patient currently remained hemodynamically stable, no evidence of hypoglycemia. PHYSICAL EXAMINATION: VITAL SIGNS: Temperature 98, pulse is 78, respiratory rate 18, and blood pressure 126/81. HEENT: No facial asymmetry. Upper and lower dentures noted. NECK: Supple, no JVD. HEART: Irregular. CHEST AND LUNGS: Equal in expansion, no expiratory wheezing. ABDOMEN: Soft. No guarding. Positive bowel sounds. No palpable mass. EXTREMITIES: No edema. NEUROLOGIC: Unremarkable. Pleasant dementia noted. CLINICAL IMPRESSION: 1. Hypoglycemia, resolved. 2. Complicated urinary tract infection. 3. Normocytic normochromic anemia, status post blood transfusion, but family refused GI workup. 4. Alzheimer dementia. 5. Degenerative joint disease. 6. Cardiac arrhythmia. 7. Status post aortic valve replacement. 8. Congestive heart failure. 9. Gastroesophageal reflux disease. PLAN: Discharge back this patient to a lower level of care with current medication. Encourage the patient to eat as an outpatient. The patient will be followed by a psychiatrist in a detention as well. JOB# [id number]
--- NOTE | 2017-12-04 16:19 | Progress Notes ---
DATE: 11/27/2017 MEDICAL PROGRESS NOTE SUBJECTIVE: The patient seen and examined. The patient was admitted by Dr. Eric Vasquez at [facility] for hypoglycemia. The patient was seen. The patient is currently sleepy though the patient is able to awake. Discussed with nursing staff. The patient has a poor p.o. intake. The patient currently does not provide any meaningful history on today's exam. OBJECTIVE: VITAL SIGNS: Temperature 98.5, pulse is 105, respiratory rate 18, and blood pressure 120/____. HEART: ____. ASSESSMENT: ____. 6. Degenerative joint disease. 7. Altered mental status. 8. Dementia. 9. ____. PLAN: 1. ____. 2. ____. 3. Coumadin. 4. ____. 5. ____. 6. ____. 7. Monitor blood sugar and blood pressure. 8. Follow lab. 9. Follow consultants ____. 10. Treatment discussed with staff. JOB# [id number]
== END 2017-11-29 14:10 | DRG 812 ==
LOC: ER 15:59 → MSI 20:07
PROVIDERS: ADMIT Internal Medicine; ATTEND Internal Medicine
PROC: 30233N1 Transfusion of Nonautologous Red Blood Cells into Peripheral Vein, Percutaneous Approach (ICD-10-PCS; principal; 2017-11-27)
DX: D50.9 Iron deficiency anemia, unspecified (principal); N39.0 Urinary tract infection, site not specified; E87.1 Hypo-osmolality and hyponatremia; I50.22 Chronic systolic (congestive) heart failure; E44.0 Moderate protein-calorie malnutrition; E11.649 Type 2 diabetes mellitus with hypoglycemia without coma; T45.515A Adverse effect of anticoagulants, initial encounter; G47.00 Insomnia, unspecified; Z66 Do not resuscitate; M10.9 Gout, unspecified; G30.9 Alzheimer's disease, unspecified; F02.80 Dementia in other diseases classified elsewhere, unspecified severity, without behavioral disturbance, psychotic disturbance, mood disturbance, and anxiety; M19.90 Unspecified osteoarthritis, unspecified site; K59.09 Other constipation; I48.2 Chronic atrial fibrillation; I49.9 Cardiac arrhythmia, unspecified; I11.0 Hypertensive heart disease with heart failure; K21.9 Gastro-esophageal reflux disease without esophagitis; Z87.11 Personal history of peptic ulcer disease; Z95.1 Presence of aortocoronary bypass graft; Z95.2 Presence of prosthetic heart valve; Z79.01 Long term (current) use of anticoagulants; Z79.899 Other long term (current) drug therapy; Z79.4 Long term (current) use of insulin
CPT/HCPCS: 36415-UA; 71045-TC; 80048-TC; 80053-TC; 80061-TC; 80162-TC; 81001-TC; 82270-TC; 82607-90; 82728-90; 82746-90; 82948-90; 83010-90; 83540-90; 83550-90; 83735-TC; 83880-TC; 84443-TC; 84484-TC; 84550-TC; 85025-TC; 85044-TC; 85610-TC; 86850-TC; 86900-TC; 86901-TC; 86922-TC; 87086-90; 93005; 94640; 94760; 97530; J0696; J1815; J7030; J7040; J7042; P9016; X3904; Z7610

== ENCOUNTER 2018-12-04 16:55 | Inpatient (IN) | payer MEDICARE, MEDICAID ==
[2018-12-04 17:45] LABS: URINE SOURCE CLEAN C
[2018-12-04 17:46] LABS: % BASOPHILS 0.5 % (0.0-2.0); % EOSINOPHILS 2.6 % (0.0-5.0); % LYMPHOCYTES 24.9 % (20.0-50.0); % MONOCYTES 5.7 % (2.0-10.0); % NEUTROPHILS 66.3 % (40.0-80.0); EOSINOPHILE ABSOLUTE 0.2 Th/cmm (0.1-0.4); HEMATOCRIT 38.6 % (41.0-60); HEMOGLOBIN 12.6 gm/dL (12-16); LYMPHOCYTE ABSOLUTE 1.6 Th/cmm (1.5-3.0); MEAN CELL VOLUME 80.5 fl (81-100); MEAN CORPUSCULAR HEMOGLOBIN 26.3 pg (27.0-31.0); MEAN CORPUSCULAR HGB CONC 32.7 pg (28.0-36.0); MONOCYTE ABSOLUTE 0.4 Th/cmm (0.3-1.0); NEUTROPHILE ABSOLUTE 4.2 Th/cmm (1.8-8.0); PLATELET COUNT 177 Th/cmm (150-400); RED CELL DISTRIBUTION WIDTH 16.4 % (11.5-20.0); WHITE BLOOD COUNT 6.4 Th/cmm (4.8-10.8)
[2018-12-04 17:48] LABS: URINE BILIRUBIN NEGATIVE (NEGATIVE); URINE BLOOD TRACE (NEGATIVE); URINE GLUCOSE (UA) NEGATIVE (NEGATIVE); URINE KETONE NEGATIVE (NEGATIVE); URINE LEUKOCYTE ESTERASE MODERATE (NEGATIVE); URINE MICROSCOPIC INDICATED? YES; URINE NITRATE NEGATIVE (NEGATIVE); URINE PH 5.5 (4.6 - 8.0); URINE PROTEIN NEGATIVE (NEGATIVE); URINE UROBILINOGEN 0.2 E.U./dL (0.2 - 1.0)
[2018-12-04 17:51] LABS: URINE CLARITY CLEAR (CLEAR); URINE COLOR YELLOW
[2018-12-04 17:53] LABS: URINE EPITHELIAL CELLS FEW /lpf (FEW); URINE RBC 0-2 /hpf (0-5)
[2018-12-04 17:54] LABS: URINE BACTERIA 1+ /hpf (NONE SEEN); URINE FINE GRANULAR CAST 0-2 /lpf (NONE SEEN)
[2018-12-04 18:05] LABS: ALB/GLOB RATIO 1.3 (1.0-1.8); ALBUMIN 4.4 gm/dL (3.7-5.3); ALKALINE PHOSPHATASE 82 U/L (34-104); BILIRUBIN,TOTAL 0.6 mg/dL (0.3-1.0); BUN - UREA NITROGEN 31 mg/dL (7-25); CARBON DIOXIDE 27.9 mEq/L (21.0-31.0); CHLORIDE 105 mEq/L (98-107); CHOLESTEROL 159 mg/dL (<200); GLUCOSE 135 mg/dL (70-105); HDL -HIGH DENSITY LIPOPROTEIN 30 mg/dL (23-92); POTASSIUM SERUM 3.9 mEq/L (3.5-5.1); SGOT 31 U/L (13-39); SGPT/ALT 28 U/L (7-52); SODIUM SERUM 142 mEq/L (136-145); TOTAL PROTEIN,SERUM 7.8 gm/dL (6.0-8.3); TRIGLYCERIDES 256 mg/dL (<150)
--- NOTE | 2018-12-04 18:27 | ED Physician Chart ---
ED Chief Complaint/HPI - Patient Information Date Seen:: 12/04/18 Time Seen:: 17:00 Chief Complaint:: combative in [facility]iary recent event History of Present Illness:: last week at [facility] Allergies:: Allergies Allergy/AdvReac Type Severity Reaction Status Date / Time No Known Allergies Allergy Verified 12/04/18 16:59 Vitals:: Vital Signs - 8 hr 12/04/18 16:59 Temp 98 F HR 97 RR 18 BP 136/89 O2 Sat % 97 Review:: Nurse's Note Reviewed, Transfer documents Reviewed, Patient unable to respond (not reliable historian) ED Review of Systems - Review of Systems General/Constitutional: No fever (multiple areas of reoccuring pain unreliable) ED Past Medical History - Past Medical History Past Medical History: DM, CHF, PUD/GERD, Dementia (afib valve replacement) Family Medical History - Family Member Mother History Unknown: Yes ED Physical Exam - Physical Examination General/Constitutional: Awake, No distress, Non-toxic appearing Head: Atraumatic Eyes: Lids, conjuctiva normal Skin: No rash ENMT: External ears, nose nl Neck: Nontender, Full ROM w/o pain Respiratory: Clear to Auscultation, No Wheeze/Rhonchi/Rales Cardio Vascular: RRR GI: Nondistended ED Labs/Radiology/EKG Results - Lab Results Results: Laboratory Tests 12/04/18 12/04/18 12/04/18 17:30 17:35 17:35 WBC 6.4 RBC 4.80 Hgb 12.6 Hct 38.6 L MCV 80.5 L MCH 26.3 L MCHC Differential 32.7 RDW 16.4 Plt Count 177 MPV 8.4 Neutrophils % 66.3 Lymphocytes % 24.9 Monocytes % 5.7 Eosinophils % 2.6 Basophils % 0.5 Sodium 142 Potassium 3.9 Chloride 105 Carbon Dioxide 27.9 Anion Gap 13.0 BUN 31 H Creatinine 1.0 Est GFR ( Amer) TNP Est GFR (Non-Af Amer) TNP BUN/Creatinine Ratio 31.0 Glucose 135 H Calcium 10.0 Total Bilirubin 0.6 AST 31 ALT 28 Alkaline Phosphatase 82 Total Protein 7.8 Albumin 4.4 Globulin 3.4 Albumin/Globulin Ratio 1.3 Triglycerides 256 H Cholesterol 159 LDL Cholesterol Direct 103 HDL Cholesterol 30 Urine Source CLEAN C Urine Color YELLOW Urine Clarity CLEAR Urine pH 5.5 Ur Specific D[place] 1.015 Urine Protein NEGATIVE Urine Glucose (UA) NEGATIVE Urine Ketones NEGATIVE Urine Blood TRACE Urine Nitrate NEGATIVE Urine Bilirubin NEGATIVE Urine Urobilinogen 0.2 Ur Leukocyte Esterase MODERATE H Urine RBC 0-2 Urine WBC 6-10 H Ur Epithelial Cells FEW Urine Bacteria 1+ H Fine Granular Casts 0-2 H Urine Mucus FEW ED Septic Shock - . Is Septic Shock (SBP<90, OR Lactate>4 mmol\L) present?: No - <6hrs of presentation: Vital Signs: Vital Signs - 8 hr 12/04/18 16:59 Temp 98 F HR 97 RR 18 BP 136/89 O2 Sat % 97 ED Reassessment (Disposition) - Reassessment Reassessment Condition:: Unchanged - Patient Disposition Discharge/Transfer:: Acute Care w/in this hosp Condition at Disposition:: Stable, Unchanged
[2018-12-04 22:27] VITALS: BP 124/56
[2018-12-04] MEDS ORDERED: Polyvinyl Alcohol Ophth Soln 15 mL Bottle EACH EYE PRN (22:58)
[2018-12-04] MEDS ORDERED: Magnesium Hydroxide (MOM) 30 mL UDC PO PRN (22:58)
[2018-12-04] MEDS ORDERED: Dextrose 50% 50 mL Abboject IVP PRN (23:06)
[2018-12-04] MEDS ORDERED: GLUCAGON HCl 1 MG KIT IM PRN (23:06)
[2018-12-05] MEDS: INSULIN LISPRO SLIDING SCALE 100 UNITS/ML UNIT SUBQ SCH ×4 (06:34→20:54)
[2018-12-05] MEDS ORDERED: Non-Formulary Item 1 EA (Cranberry Fruit [Cranberry] 450 MG) PO SCH (09:00)
[2018-12-05] MEDS: Pantoprazole 40 mg EC Tab PO SCH ×2 (09:52→17:03)
[2018-12-05] MEDS: Multivitamin w/ Minerals Tab PO SCH (09:52)
[2018-12-05] MEDS: Diltiazem 30 mg Tab PO SCH ×3 (09:52→20:28)
[2018-12-05] MEDS: Ferrous Sulfate 325 MG TAB PO SCH (09:52)
[2018-12-05] MEDS: PHENYLEPHRINE TP SCH ×2 (09:53→20:56)
[2018-12-05 16:23] LABS: INR 2.18 (0.5-1.4)
[2018-12-05] MEDS: Sulfamethoxazole/TMP 800/160mg Tab PO SCH (17:03)
[2018-12-05] MEDS: Insulin Glargine 100 units/ml 10ml Vial SUBQ SCH (20:53)
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
[2018-12-06 07:05] LABS: A1C 7.8 % (4.8-5.6)
[2018-12-06] MEDS: INSULIN LISPRO SLIDING SCALE 100 UNITS/ML UNIT SUBQ SCH ×4 (07:18→21:57)
[2018-12-06] MEDS: PHENYLEPHRINE TP SCH ×2 (09:02→22:07)
[2018-12-06] MEDS: Pantoprazole 40 mg EC Tab PO SCH ×2 (09:03→16:33)
[2018-12-06] MEDS: Multivitamin w/ Minerals Tab PO SCH (09:04)
[2018-12-06] MEDS: Ferrous Sulfate 325 MG TAB PO SCH (09:04)
[2018-12-06] MEDS: Sulfamethoxazole/TMP 800/160mg Tab PO SCH (09:05)
[2018-12-06] MEDS: Diltiazem 30 mg Tab PO SCH ×3 (09:06→22:02)
--- NOTE | 2018-12-06 11:11 | History & Physical ---
ADMIT DATE: PATIENT ID: An 82-year-old female. REQUESTING PHYSICIAN: Dr. Conley. CHIEF COMPLAINT: "Are you Dr. Burns." HISTORY OF PRESENT ILLNESS: An 82-year-old ____ Citizen Of [place] female who resides at [facility], has been followed by myself and Dr. Conley and noted by staff that the patient was aggressive, agitated, and the patient was seen by Dr. Conley who suggested that the patient should be admitted. The patient was admitted to [facility] for further evaluation and treatment. PAST MEDICAL HISTORY: Remarkable for: 1. Diabetes mellitus. 2. Hypertension. 3. Chronic atrial fibrillation. 4. History of mitral valve replacement. 5. Degenerative joint disease. 6. Dementia. 7. History of recurrent urinary tract infection. 8. Congestive heart failure. 9. Chronic atrial fibrillation. 10. Recurrent anemia and history of gastrointestinal bleed. MEDICATIONS: At the time of transfer has been reviewed and reconciled appropriately. ALLERGIES: The patient is not allergic to medication. SOCIAL HISTORY: The patient currently resides in a [facility]. The patient has no history of smoking cigarette, alcohol, or drug use. REVIEW OF SYSTEMS: The patient said "I don't feel good and I am scared." The patient denies any chest pain, shortness of breath, palpitation, dizziness, nausea, vomiting, diarrhea, dysuria, hematuria, hematochezia, or melena. No history of any seizure or syncopal episode. PHYSICAL EXAMINATION: GENERAL: The patient is alert, awake, lying in the bed without any acute distress. VITAL SIGNS: Temperature 97, pulse is 78, respiratory rate 18, and blood pressure 124/60. HEENT: Normocephalic, atraumatic. Extraocular muscles intact. Tongue more pink and coated. Upper and lower dentures noted. No facial asymmetry. NECK: Supple, no JVD, no hepatojugular reflex. No lymphadenopathy, thyromegaly, or carotid bruit. HEART: Both heart sounds are regular. Grade 3/6 systolic murmur noted with metallic sound from mechanical valve noted. CHEST AND LUNGS: Equal in expansion, no expiratory wheezing. ABDOMEN: Soft. No guarding, no rigidity. Bowel sounds present. No palpable mass. EXTREMITIES: No edema, no cyanosis. Peripheral pulses +1. No calf tenderness noted. NEUROLOGIC: Alert, awake, follows command. No facial asymmetry. Decreased power throughout the upper and lower extremity noted. AVAILABLE DIAGNOSTIC DATA: White count of 6.4, hemoglobin 12.6, platelet count of 177, BUN and creatinine is 31 and 1.0, potassium 3.9. PT/INR of 21.8 and 20.1. Triglyceride 256. Urinalysis ____ moderate leukocyte esterase positive, wbc's 6-10, and bacteria was +1. No fine granular cast was reported. EKG has normal sinus rhythm with some premature atrial contraction. Poor R-wave progression is noted. CLINICAL IMPRESSION: 1. Psychotic disorder exacerbation. 2. Hypertension. 3. Dementia. 4. Diabetes mellitus. 5. Status post mitral valve replacement. 6. Long-term anticoagulation therapy. 7. Gastroesophageal reflux disease. 8. Chronic anemia. 9. Congestive heart failure. 10. High risk for fall. 11. Debility. 12. Decline in ____ and mobility. 13. History of gout. PLAN: The patient is admitted at this time to Geropsych Unit. Psychiatric evaluation and management is deferred to psychiatrist. It has been noted that the patient is currently placed on Bactrim, although the patient has no signs or symptoms of urinary tract infection plus Coumadin and Bactrim and interacts and increases the significant protime and INR. We will discontinue the patient's Bactrim-DS for now. The patient will provide fall precautions. Appropriate home medication reconciliation, diabetes management, general nursing care along with psychiatric evaluation and management deferred to psychiatrist. Care plan has been reviewed and discussed with assigned nurse. JOB# [id number]
[2018-12-06] MEDS: Insulin Glargine 100 units/ml 10ml Vial SUBQ SCH (21:58)
--- NOTE | 2018-12-07 01:51 | Progress Notes ---
DATE: 12/06/2018 SUBJECTIVE: An 82-year-old female here due to aggressive behavior, is believing that staff is trying to harm her, believing that "the devil is here," not wanting to eat, selective with medications, poor sleep, ____ to voices commanding her to "sleep," paranoid, delusional about others. Only takes medications when family members present. Family is visiting her on the positive note. The patient is angry, difficult to fully assess, mostly stares blankly, confused. PLAN: We will continue to monitor as noted, ongoing psychotic symptoms. Continue Risperdal. JOB# [id number]
[2018-12-07] MEDS: INSULIN LISPRO SLIDING SCALE 100 UNITS/ML UNIT SUBQ SCH ×4 (06:49→20:30)
[2018-12-07] MEDS: Pantoprazole 40 mg EC Tab PO SCH ×2 (09:26→16:42)
[2018-12-07] MEDS: Ferrous Sulfate 325 MG TAB PO SCH (09:26)
[2018-12-07] MEDS: Multivitamin w/ Minerals Tab PO SCH (09:26)
[2018-12-07] MEDS: Diltiazem 30 mg Tab PO SCH ×3 (09:26→20:27)
[2018-12-07] MEDS: PHENYLEPHRINE TP SCH ×2 (09:26→20:37)
[2018-12-07] MEDS: Insulin Glargine 100 units/ml 10ml Vial SUBQ SCH (20:31)
[2018-12-08] MEDS: INSULIN LISPRO SLIDING SCALE 100 UNITS/ML UNIT SUBQ SCH ×4 (06:38→21:40)
[2018-12-08] MEDS: Diltiazem 30 mg Tab PO SCH ×3 (09:51→21:41)
[2018-12-08] MEDS: Pantoprazole 40 mg EC Tab PO SCH ×2 (09:52→17:46)
[2018-12-08] MEDS: Ferrous Sulfate 325 MG TAB PO SCH (09:54)
[2018-12-08] MEDS: Multivitamin w/ Minerals Tab PO SCH (09:54)
[2018-12-08] MEDS: PHENYLEPHRINE TP SCH ×2 (09:55→21:40)
--- NOTE | 2018-12-08 20:06 | Progress Notes ---
DATE: 12/07/2018 SUBJECTIVE: The patient is seen today on 12/07/2018, agitated, "get away, get away", "you are hurting Brenda," not making any sense, disorganized, bizarre, highly confused. 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 We will continue to monitor and titrate antipsychotic medications as tolerated. [facility]# [id number]
[2018-12-08] MEDS: Insulin Glargine 100 units/ml 10ml Vial SUBQ SCH (21:42)
[2018-12-09] MEDS: INSULIN LISPRO SLIDING SCALE 100 UNITS/ML UNIT SUBQ SCH ×4 (06:52→21:25)
[2018-12-09] MEDS: Ferrous Sulfate 325 MG TAB PO SCH (09:42)
[2018-12-09] MEDS: Diltiazem 30 mg Tab PO SCH ×3 (09:42→21:45)
[2018-12-09] MEDS: Pantoprazole 40 mg EC Tab PO SCH ×2 (09:43→17:28)
[2018-12-09] MEDS: PHENYLEPHRINE TP SCH ×2 (09:43→21:26)
[2018-12-09] MEDS: Multivitamin w/ Minerals Tab PO SCH (09:43)
[2018-12-09] MEDS: Insulin Glargine 100 units/ml 10ml Vial SUBQ SCH (21:24)
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
[2018-12-10] MEDS: INSULIN LISPRO SLIDING SCALE 100 UNITS/ML UNIT SUBQ SCH ×4 (06:41→21:04)
[2018-12-10] MEDS: Multivitamin w/ Minerals Tab PO SCH (09:18)
[2018-12-10] MEDS: Ferrous Sulfate 325 MG TAB PO SCH (09:19)
[2018-12-10] MEDS: Pantoprazole 40 mg EC Tab PO SCH ×3 (09:20→18:01)
[2018-12-10] MEDS: Diltiazem 30 mg Tab PO SCH ×3 (09:20→21:02)
[2018-12-10] MEDS: PHENYLEPHRINE TP SCH ×2 (11:54→21:04)
--- NOTE | 2018-12-10 13:18 | Progress Notes ---
DATE: 12/10/2018 SUBJECTIVE: The patient is currently in the hospital, does not know why she is here, "to be analyzed", still impulsive, unpredictable, paranoid, talking nonsense very poor memory, poor impulse control, all concerns that she may strike out as she has done so in the past, seems to be generally calmer, more cooperative. She is taking her medications. We will continue to monitor, encourage better med compliance. [facility]# [id number]
[2018-12-10] MEDS: Insulin Glargine 100 units/ml 10ml Vial SUBQ SCH (21:03)
[2018-12-11] MEDS: INSULIN LISPRO SLIDING SCALE 100 UNITS/ML UNIT SUBQ SCH ×4 (06:32→20:39)
[2018-12-11] MEDS: Diltiazem 30 mg Tab PO SCH ×3 (09:09→20:37)
[2018-12-11] MEDS: Ferrous Sulfate 325 MG TAB PO SCH (09:14)
[2018-12-11] MEDS: Multivitamin w/ Minerals Tab PO SCH (09:14)
[2018-12-11] MEDS: Pantoprazole 40 mg EC Tab PO SCH ×2 (09:25→16:22)
[2018-12-11] MEDS: PHENYLEPHRINE TP SCH ×2 (09:25→20:40)
[2018-12-11] MEDS: Insulin Glargine 100 units/ml 10ml Vial SUBQ SCH (20:38)
[2018-12-12] MEDS: INSULIN LISPRO SLIDING SCALE 100 UNITS/ML UNIT SUBQ SCH ×4 (06:37→21:01)
[2018-12-12 06:52] LABS: INR 1.4 (0.5-1.4)
[2018-12-12] MEDS: Diltiazem 30 mg Tab PO SCH ×3 (08:46→20:57)
[2018-12-12] MEDS: Ferrous Sulfate 325 MG TAB PO SCH (08:46)
[2018-12-12] MEDS: Multivitamin w/ Minerals Tab PO SCH (08:47)
[2018-12-12] MEDS: Pantoprazole 40 mg EC Tab PO SCH ×2 (08:47→16:14)
[2018-12-12] MEDS: PHENYLEPHRINE TP SCH ×2 (08:48→21:23)
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
[2018-12-12] MEDS: Insulin Glargine 100 units/ml 10ml Vial SUBQ SCH (20:59)
--- NOTE | 2018-12-12 22:41 | Progress Notes ---
DATE: 12/12/2018 SUBJECTIVE: The patient is currently in the hospital, confused, disoriented. She had been pretty combative and aggressive, but is generally calmer, less paranoid, still making some nonsensical statements. I spoke with daughter yesterday, updated her. The patient seems to be doing well on medications, generally calmer, fair sleep, fair appetite. PLAN: We will continue to monitor. The patient still with some delusions, disorientations, high confusion, but no longer violent. We will continue to monitor for any side effect. JOB# [id number]
[2018-12-13] MEDS: INSULIN LISPRO SLIDING SCALE 100 UNITS/ML UNIT SUBQ SCH ×4 (07:30→21:23)
[2018-12-13] MEDS: PHENYLEPHRINE TP SCH ×2 (08:25→21:21)
[2018-12-13] MEDS: Diltiazem 30 mg Tab PO SCH ×3 (08:46→21:20)
[2018-12-13] MEDS: Multivitamin w/ Minerals Tab PO SCH (08:50)
[2018-12-13] MEDS: Pantoprazole 40 mg EC Tab PO SCH ×2 (08:50→16:47)
[2018-12-13] MEDS: Ferrous Sulfate 325 MG TAB PO SCH (08:50)
--- NOTE | 2018-12-13 14:09 | Progress Notes ---
DATE: IDENTIFICATION: An 82-year-old female. SUBJECTIVE: The patient was seen and examined. The patient is lying in the bed. No new complaint. PHYSICAL EXAMINATION: VITAL SIGNS: Temperature 97.6, pulse is 95, respiratory rate 18, blood pressure 144/68. HEENT: No facial asymmetry. Upper and lower dentures noted. NECK: Supple, no JVD. HEART: Irregular with metallic crisp noted with grade 3/6 systolic murmur noted. CHEST AND LUNGS: Equal in expansion with no expiratory wheezing. ABDOMEN: Soft. No guarding, no rigidity. Bowel sounds present. No palpable mass. EXTREMITIES: No edema. AVAILABLE DIAGNOSTIC DATA: None for my review. MEDICATIONS: Admission record reviewed. CLINICAL IMPRESSION: 1. Psychotic disorder exacerbation. 2. Hypertension. 3. Dementia. 4. Diabetes. 5. Status post mitral valve replacement. 6. Gastroesophageal reflux disease. 7. Congestive heart failure. 8. Gout. 9. High risk for fall. 10. Long-term anticoagulation therapy. PLAN: 1. Psych medication. 2. Psych followup. 3. Monitor blood pressure. 4. Antihypertensive medicine. 5. Fall precaution. 6. Diabetes management. 7. Anticoagulation therapy. 8. General nursing care. 9. Nutritional support. 10. Continue to provide current treatment plan as prescribed. 11. We will continue to follow this patient during the stay in the hospital. JOB# [id number]
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
[2018-12-13] MEDS: Insulin Glargine 100 units/ml 10ml Vial SUBQ SCH (21:24)
[2018-12-14] MEDS: INSULIN LISPRO SLIDING SCALE 100 UNITS/ML UNIT SUBQ SCH ×4 (06:52→21:55)
[2018-12-14] MEDS: Ferrous Sulfate 325 MG TAB PO SCH (08:28)
[2018-12-14] MEDS: Pantoprazole 40 mg EC Tab PO SCH ×2 (08:28→16:35)
[2018-12-14] MEDS: PHENYLEPHRINE TP SCH ×2 (08:28→21:35)
[2018-12-14] MEDS: Multivitamin w/ Minerals Tab PO SCH (08:28)
[2018-12-14] MEDS: Diltiazem 30 mg Tab PO SCH ×3 (08:28→21:56)
[2018-12-14] MEDS: Insulin Glargine 100 units/ml 10ml Vial SUBQ SCH (21:28)
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
[2018-12-15 06:32] LABS: INR 1.29 (0.5-1.4)
[2018-12-15] MEDS: INSULIN LISPRO SLIDING SCALE 100 UNITS/ML UNIT SUBQ SCH ×3 (06:33→20:39)
[2018-12-15] MEDS: Ferrous Sulfate 325 MG TAB PO SCH (09:00)
[2018-12-15] MEDS: Pantoprazole 40 mg EC Tab PO SCH ×2 (09:00→16:48)
[2018-12-15] MEDS: Diltiazem 30 mg Tab PO SCH ×3 (09:55→20:38)
[2018-12-15] MEDS: Multivitamin w/ Minerals Tab PO SCH (10:04)
[2018-12-15] MEDS: PHENYLEPHRINE TP SCH ×2 (10:05→21:05)
--- NOTE | 2018-12-15 16:12 | Progress Notes ---
DATE: 12/15/2018 SUBJECTIVE: The patient in the hospital, seen by Dr. Iverson noting that she remains paranoid, believing food is being poisoned. The patient seems to be somewhat calmer this morning. She does seem to be eating more, but oriented to name, place, less paranoid, no longer talk about the food being poisoned, seems to be improving on some level. She does remain pretty impulsive, concerns that her behaviors may shift quickly. The patient is still believing that she will for example win the lottery, give her money to the staff. Medications were noted. No side effects. I did speak with daughter a few days ago. Recent dose adjustments in medications. We will continue to monitor closely. [facility]# [id number]
[2018-12-15] MEDS: Insulin Glargine 100 units/ml 10ml Vial SUBQ SCH (20:55)
[2018-12-16 06:32] LABS: INR 1.17 (0.5-1.4)
[2018-12-16] MEDS: INSULIN LISPRO SLIDING SCALE 100 UNITS/ML UNIT SUBQ SCH ×4 (07:30→21:09)
[2018-12-16] MEDS: Pantoprazole 40 mg EC Tab PO SCH ×2 (12:57→17:37)
[2018-12-16] MEDS: Diltiazem 30 mg Tab PO SCH ×3 (13:02→22:02)
[2018-12-16] MEDS: PHENYLEPHRINE TP SCH ×2 (13:02→21:30)
[2018-12-16] MEDS: Ferrous Sulfate 325 MG TAB PO SCH (13:03)
[2018-12-16] MEDS: Multivitamin w/ Minerals Tab PO SCH (13:07)
--- NOTE | 2018-12-16 20:21 | Progress Notes ---
DATE: 12/16/2018 The patient seems to be generally improving, calmer. No agitation, no escalation of behaviors, slept fairly well, likely approaching her baseline; delusions dissipating, decreasing. She seems to be tolerant of current dosing of medications. I spoke with daughter last week and noted improvement as well. Less yelling episodes. Not trying to hit anybody. We will monitor for further 24 hours, just to add on the side of caution. No dose adjustments at this time. The patient is doing better. We will monitor for side effects. JOB# [id number]
[2018-12-16] MEDS: Insulin Glargine 100 units/ml 10ml Vial SUBQ SCH (21:10)
[2018-12-17] MEDS: INSULIN LISPRO SLIDING SCALE 100 UNITS/ML UNIT SUBQ SCH ×3 (07:10→16:06)
[2018-12-17 07:31] LABS: INR 1.22 (0.5-1.4)
[2018-12-17] MEDS: Diltiazem 30 mg Tab PO SCH ×2 (08:48→14:36)
[2018-12-17] MEDS: Ferrous Sulfate 325 MG TAB PO SCH (08:53)
[2018-12-17] MEDS: Pantoprazole 40 mg EC Tab PO SCH ×2 (08:54→16:02)
[2018-12-17] MEDS: Multivitamin w/ Minerals Tab PO SCH (08:59)
[2018-12-17] MEDS: PHENYLEPHRINE TP SCH (09:19)
[2018-12-17 09:28] LABS: % BASOPHILS 0.3 % (0.0-2.0); % EOSINOPHILS 2.6 % (0.0-5.0); % LYMPHOCYTES 30.6 % (20.0-50.0); % MONOCYTES 6.6 % (2.0-10.0); % NEUTROPHILS 59.9 % (40.0-80.0); EOSINOPHILE ABSOLUTE 0.2 Th/cmm (0.1-0.4); HEMATOCRIT 33.8 % (41.0-60); LYMPHOCYTE ABSOLUTE 1.9 Th/cmm (1.5-3.0); MEAN CELL VOLUME 81.9 fl (81-100); MEAN CORPUSCULAR HEMOGLOBIN 26.7 pg (27.0-31.0); MEAN CORPUSCULAR HGB CONC 32.7 pg (28.0-36.0); MONOCYTE ABSOLUTE 0.4 Th/cmm (0.3-1.0); NEUTROPHILE ABSOLUTE 3.8 Th/cmm (1.8-8.0); PLATELET COUNT 166 Th/cmm (150-400); RED BLOOD COUNT 4.12 Mil/cmm (3.80-5.20); RED CELL DISTRIBUTION WIDTH 15.8 % (11.5-20.0); WHITE BLOOD COUNT 6.3 Th/cmm (4.8-10.8)
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
== END 2018-12-17 16:30 | DRG 885 ==
LOC: ER 16:55 → GERO2 18:34 → GERO 12-06 17:10
PROVIDERS: ADMIT Psychiatry & Neurology Psychiatry; ATTEND Psychiatry & Neurology Psychiatry
DX: F23 Brief psychotic disorder (principal); I11.0 Hypertensive heart disease with heart failure; F03.91 Unspecified dementia, unspecified severity, with behavioral disturbance; E11.9 Type 2 diabetes mellitus without complications; I50.9 Heart failure, unspecified; K21.9 Gastro-esophageal reflux disease without esophagitis; F39 Unspecified mood [affective] disorder; I48.2 Chronic atrial fibrillation; M19.90 Unspecified osteoarthritis, unspecified site; D64.9 Anemia, unspecified; M10.9 Gout, unspecified; F41.9 Anxiety disorder, unspecified; Z95.2 Presence of prosthetic heart valve; Z91.81 History of falling; Z79.01 Long term (current) use of anticoagulants
CPT/HCPCS: 36415-UA; 80053-TC; 80061-TC; 81001-TC; 82948-90; 83036-90; 84443-TC; 85025-TC; 85610-TC; 86592-TC; 93005; G0410; J1815; Z7610